=== PATIENT | male | born 1990 | race Caucasian/White ===

== ENCOUNTER 2023-11-16 18:27 | Emergency (ER) | payer OTHER, SELFPAY ==
--- NOTE | 2023-11-16 18:28 | ED.GENADULT ---
HPI - General Adult General Chief complaint: Urogenital-Male Stated complaint: blood in urine Time Seen by Provider: 11/16/23 21:09 Source: patient Mode of arrival: ambulatory History of Present Illness HPI narrative: 33-year-old male with history of renal colic presents with reports of bilateral flank pain that started approximately 1700 this evening and he states that he noted hematuria but otherwise states he has been feeling well. Patient reports some nausea but no vomiting as well as some associated chills but no fevers. Related Data Previous Rx's Medication Instructions Recorded tamsulosin 0.4 mg capsule (Flomax) 0.4 mg PO BEDTIME #5 caps 11/16/23 Allergies Allergy/AdvReac Type Severity Reaction Status Date / Time No Known Allergies Allergy Verified 11/16/23 18:29 Review of Systems Review of Systems: Pertinent positives and negatives as stated in HPI PMFSH Past Medical History Source: nursing notes reviewed Social History Social History Advance Directives: No Advance Directives Information Provided: No Physical Exam ED Vital Signs: Vital Signs - 24 hr 11/16/23 18:30 11/16/23 19:50 11/16/23 19:50 Temperature 98.0 F 98.4 F Pulse Rate 90 83 Respiratory Rate 18 18 Blood Pressure 142/104 H 152/104 H Pulse Oximetry 98 98 98 Oxygen Delivery Method Room Air Room Air Room Air BMI result Body Mass Index 23.7 VITAL SIGNS: Reviewed. GENERAL: Well developed, well nourished, in no acute distress. HEAD: Normocephalic/atraumatic EYES: PERRLA, EOMI EARS: Ext canals without abnormality NOSE: Nares patent bilateral OROPHARYNX: no oral lesions noted, posterior pharynx clear NECK: Supple, no adenopathy LUNGS: Normal breath sounds. No adventitious sounds or accessory muscle use. SpO2<98> CARDIOVASCULAR: Regular rate and rhythm without noted murmurs ABDOMEN: Soft, non-tender, non-distended with bowel sounds. MUSCULOSKELETAL: No tenderness, deformities, or effusions noted on gross inspection. EXTREMITIES: No cyanosis, clubbing or edema. SKIN: Inspection of the skin reveals no rashes NEUROLOGIC: Alert and oriented x 4. Strength and sensation to light touch were grossly intact x 4. Course Course Course Narrative: This is a rapid medical exam: Additional HPI, ROS, PE not included below will be deferred to primary provider. Patient is a 33-year-old male presenting to the emergency department stating that he noted hematuria when he was leaving work tonight. Denies fevers. Also complaining of RUQ abdominal pain which he rates at 3 or 4/10. Complains of bilateral mid back pain, ranging anywhere from 2-5/10. Reports father has hx of kidney stones. Denies concern for STIs. Plan: UA, CT NG urine, labs Medical Decision Making Medical Decision Making [facility] Narrative: 33-year-old male with history and clinical presentation, DDX: Renal colic, hematuria, urinary tract infection I reviewed all investigations and hematologic indices are negative for leukocytosis or left shift, there is a noted thrombocytopenia but otherwise no anemia. Chemistry indices are grossly within normal limits without any noted derangements. Urine is positive for blood but otherwise no evidence of infection, patient's reported pain at this time is 1-2/10. Although chlamydia/gonorrhea is pending I have lower clinical suspicion of this being in etiology. My interpretation is patient may be suffering from renal colic with good pain control at this time, will discharge with instructions to follow-up with urology and increase hydration status. Patient was provided with combination analgesics as well as a prescription for Flomax. Differential Diagnosis Differential Diagnoses: The differential diagnosis associated with the presentation includes Please see the discussion above Admission/Observation Consideration of admission/observation: Escalation of care including admission/observation considered Please see the discussion above Lab Data [facility] Lab Attestation statement: I reviewed the patient's lab results. Please see the discussion above 11/16/23 18:59 11/16/23 18:59 Labs: Lab Results 11/16/23 11/16/23 Range/Units 18:59 19:02 WBC 6.6 (4.8-10.8) X10*3/uL RBC 4.43 L (4.60-5.80) X10*6/uL Hgb 14.0 (14.0-18.0) g/dl Hct 38.7 L (42.0-52.0) % MCV 87.4 (80.0-98.0) fL MCH 31.6 (27.0-33.0) pg MCHC 36.2 H (31.0-36.0) g/dl RDW 12.2 (11.0-16.0) % Plt Count 151 L (160-400) X10*3/uL MPV 9.6 (9.4-12.4) fL Immature Gran % (Auto) 0.3 (0.0-0.4) % Neut % (Auto) 64.5 (45-73) % Lymph % (Auto) 25.4 (20-40) % [place] % (Auto) 8.8 (2-11) % Eos % (Auto) 0.8 (0-4) % Baso % (Auto) 0.2 (0-2) % Lymph # (Auto) 1.7 (1.2-4.9) X10*3/uL [place] # (Auto) 0.6 (0.1-1.2) X10*3/uL Eos # (Auto) 0.1 (0.0-0.4) X10*3/uL Baso # (Auto) 0.0 (0.0-0.2) X10*3/uL Abs Immat Gran (auto) 0.02 (0.00-0.03) X10*3/uL Absolute Neuts (auto) 4.3 (2.0-8.3) x10*3/uL Absolute Nucleated RBC 0.000 (0.0-0.012) X10*3/uL Nucleated RBC % (auto) 0.0 (0.0-0.2) /100WBC Sodium 140 (135-145) mmol/L Potassium 3.9 (3.3-5.1) mmol/L Chloride 102 (96-108) mmol/L Carbon Dioxide 26 (22-29) mmol/L Anion Gap 16 (12-20) BUN 14 (9-16) mg/dL Creatinine 0.77 (0.5-1.4) mg/dL Estim Creat Clear Calc 145.3 Estimated GFR > 60 Random Glucose 91 (60-115) mg/dL Calcium 9.3 (8.4-10.2) mg/dL Total Bilirubin 0.7 (0.0-1.0) mg/dL AST 21 (5-37) U/L ALT 31 (0-40) U/L Alkaline Phosphatase 53 (39-117) U/L Total Protein 6.9 (6.5-8.0) g/dL Albumin 4.4 (3.5-5.0) g/dL Lipase 23 (8-78) U/L Urine Color Yellow Urine Appearance Clear Urine pH 5.5 (5.0-9.0) Ur Specific [place] 1.020 (1.005-1.025) Urine Protein Negative (Neg-Trace) mg/dL Urine Glucose (UA) Negative (Negative) mg/dL Urine Ketones Negative (Negative) mg/dL Urine Blood Moderate (2+) H (Negative) Urine Nitrite Negative (Negative) Ur Leukocyte Esterase Negative (Negative) Urine RBC >20 H (0-2) /HPF Urine WBC 0-5 (0-5) /HPF Ur Squamous Epith Cells 0-2 (0-2) /HPF Urine Bacteria None Seen (None Seen) Hyaline Casts 0-2 (0-2) /LPF Discharge Plan Discharge Clinical Impression: Hematuria, Renal colic Patient Disposition: Home, Self-Care Instructions: Renal Colic (ED), Hematuria (ED) Additional Instructions: 1. Recommend [id number] Tylenol/ibuprofen as needed for pain control, increase the amount of water intake, please call the office of the urologist in the morning to set up an appointment for re-evaluation further outpatient management. 2. You have been provided with a prescription for Flomax. Return to the ER for any worsening symptoms. Prescriptions: New tamsulosin [Flomax] 0.4 mg capsule 0.4 mg PO BEDTIME Qty: 5 0RF Referrals: Thuan Franco MD [Physician] -
[2023-11-16 18:30] VITALS: PULSE 90; RESP 18; TEMP 36.7; O2SAT 98; BMI 23.7
[2023-11-16 19:03] LABS: MANUAL DIFF FLAG NO
[2023-11-16 19:05] LABS: Basophils Percent Auto 0.2 % (0-2); Eosinophils Absolute Auto 0.1 X10*3/uL (0.0-0.4); Eosinophils Percent Auto 0.8 % (0-4); Hematocrit 38.7 % (42.0-52.0); Imm Gran Abs Auto 0.02 X10*3/uL (0.00-0.03); Imm Gran Pct Auto 0.3 % (0.0-0.4); Lymphocytes Absolute Auto 1.7 X10*3/uL (1.2-4.9); Lymphocytes Percent Auto 25.4 % (20-40); Mean Corpuscular HGB Conc 36.2 g/dl (31.0-36.0); Mean Corpuscular Hemoglobin 31.6 pg (27.0-33.0); Mean Corpuscular Volume 87.4 fL (80.0-98.0); Mean Platelet Volume 9.6 fL (9.4-12.4); Monocytes Absolute Auto 0.6 X10*3/uL (0.1-1.2); Monocytes Percent Auto 8.8 % (2-11); Neutrophils Absolute Auto 4.3 x10*3/uL (2.0-8.3); Neutrophils Percent Auto 64.5 % (45-73); Platelet Count 151 X10*3/uL (160-400); Red Blood Count 4.43 X10*6/uL (4.60-5.80); Red Cell Distribution Width 12.2 % (11.0-16.0); White Blood Count 6.6 X10*3/uL (4.8-10.8)
[2023-11-16 19:17] LABS: Appearance Urine Clear; Color Urine Yellow; Glucose Urine UA Negative (Negative); Leukocyte Esterase Urine Negative (Negative); Nitrite Urine Negative (Negative); PH 5.5 (5.0-9.0); UMIC TRIGGER UACC YES; Urine Blood Moderate (2+) (Negative); Urine Ketones Negative (Negative); Urine Protein Negative (Neg-Trace)
[2023-11-16 19:17] LABS: Alanine Aminotransferase 31 U/L (0-40); Albumin Level 4.4 g/dL (3.5-5.0); Alkaline Phosphatase 53 U/L (39-117); Anion Gap 16 (12-20); Aspartate Amino Transferase 21 U/L (5-37); Bilirubin Total 0.7 mg/dL (0.0-1.0); Blood Urea Nitrogen 14 mg/dL (9-16); Calcium 9.3 mg/dL (8.4-10.2); Carbon Dioxide 26 mmol/L (22-29); Chloride 102 mmol/L (96-108); Creatinine Clr Calc Pharmacy 145.3; Estimated Glomerular Filt Rate > 60; Glucose Random 91 mg/dL (60-115); Lipase 23 U/L (8-78); Potassium 3.9 mmol/L (3.3-5.1); Sodium 140 mmol/L (135-145); Total Protein 6.9 g/dL (6.5-8.0)
[2023-11-16 19:22] LABS: Bacteria Urine None Seen (None Seen); Hyaline Casts Urine 0-2 /LPF (0-2); RBC Urine >20 /HPF (0-2); Squamous Epithelial Cell Urine 0-2 /HPF (0-2); WBC Urine 0-5 /HPF (0-5)
[2023-11-16 19:50] VITALS: BP 142/104; BP 152/104; PULSE 83; RESP 18; TEMP 36.9; O2SAT 98
[2023-11-16] MEDS: Acetaminophen 325 MG TABLET 975 MG PO (21:54)
[2023-11-16] MEDS: Ibuprofen 400 MG TABLET PO (21:54)
[2023-11-16 21:57] VITALS: BP 149/105; PULSE 85; RESP 16; O2SAT 98
[2023-11-17 02:48] LABS: CT PCR NOT DETECTED (Not Detect.); NG PCR NOT DETECTED (Not Detect.)
== END 2023-11-16 22:02 | disposition home or self-care (01) ==
PROVIDERS: Registered Nurse Emergency; Emergency Provider Student in an Organized Health Care Education/Training Program
DX: R31.9 Hematuria, unspecified (principal); N23 Unspecified renal colic
CPT/HCPCS: 0353U; 36415; 80053; 81001; 83690; 85025; 99283; 99284

== ENCOUNTER 2023-12-28 14:25 | Outpatient (AMB) | payer OTHER, SELFPAY ==
--- NOTE | 2023-12-28 15:02 | MHC.OFFVIS ---
Intake Intake Visit Reasons: ER Follow up/hematuria Intake Note: NEW Patient presents today to established treatment for: Hematuria Meds- D/C Tamsulosin Allergies to Antibiotic- No Known Allergies Blood Thinner- None Patient stated since he was discharged from the ER,he is been doing well. Community Services Manager Required: No Accompanied by: Self / Same As Patient Allergies No Known Allergies Allergy (Verified 12/28/23 15:37) Medication List - Last Reconciled 12/28/23 by LULY Marquez- No Known Home Meds HPI HPI Comments History of Present Illness Details Dav Perry is a pleasant 33-year-old male patient. He presents to the office today as a new patient for gross hematuria. In discussion with the patient today reports having seeked emergency room care services approximately 6 weeks ago for reports of bilateral flank pain and hematuria. In review of patient's chart it does not appear imaging was ordered. It appears a urine specimen was obtained and noted 1+ microscopic hematuria however patient was discharge as pain had since somewhat decreased significantly/subsided. In discussion with the patient today he does report a longstanding history of smoking. Reports approximately 20 year history of smoking. He reports smoking approximately half a pack of cigarettes per day as he is trying to quit. He otherwise denies urinary urgency, urinary frequency, incontinence, nocturia, hematuria, foul smelling urine, changes to urinary stream, flank pain, fever, and or chills. He is happy with his current voiding parameters. He does report intermittent infrequent episodes of dysuria however relates this to happening when he has a decrease consumption of liquids or fluids for the day. We discussed at length potential causes for gross hematuria. In office urinalysis results reviewed with the patient today. No microscopic hematuria noted. Discussed reasons for blood in the urine may include but are not limited to kidney stones, cancer in the urinary tract, BPH, kidney stone disease or inflammatory conditions of the urinary tract. I have discussed workup to include CT urogram, cytology, and cystoscopy evaluation. [facility] Social History (Updated 12/28/23 @ 15:21 by Maureen Lopez CMA) Alcohol intake: current Patient Tobacco Use Status: Current everyday Tobacco user Tobacco use type: Cigarette Review of Systems Const All systems reviewed & are unremarkable except as noted in HPI and below Physical Exam Const General: cooperative, healthy appearing, comfortable, no acute distress, well developed, alert and awake Orientation/consciousness: patient oriented x3 Limitations: no limitations HEENT Head: Yes normal to inspection, Yes normocephalic and Yes atraumatic Ears: hearing grossly normal bilaterally Eyes General: appearance normal, both eyes and all related structures Neck Neck: Yes normal visual inspection and Yes trachea midline Chest Chest palpation & inspection: normal inspection of the chest Resp Effort & Inspection: normal respiratory effort and able to speak in complete sentences Cardio Rate: regular rate GI Inspection: Yes normal to inspection General: Yes no CVA tenderness Back/Spine/Pelvis Back: no CVA tenderness Skin General skin exam: no rashes or lesions noted Neuro General: patient oriented x3 Extrem General: Yes normal to inspection Psych Appearance: grossly normal and well kempt Mental Status: mental status grossly normal Speech and movement: Normal speech and movement present and Clear speech present Affect: normal affect Attitude: cooperative Thought process: Normal thought process present Thought content: Normal thought content present Insight: Fair insight present (Psych) Judgement: Fair judgement present (Psych) Results AMB Urinalysis, Automated UA Leukoctes 0 Shelly/uL Last Edit by Maureen Lopezguilherme Lopez [facility] on 12/28/23 15:20 UA Nitrite Negative [facility] on 12/28/23 15:20 UA Urobilinogen 0.2 mg/dL Last Edit by Maureen Lopezguilherme Lopez [facility] on 12/28/23 15:20 UA Protein 0 mg/dL [facility] on 12/28/23 15:20 UA pH 6.0 Last Edit by [facility] on 12/28/23 15:20 UA Blood 0 Andrew/uL [facility] on 12/28/23 15:20 UA Specific [place] 1.020 Last Edit [facility] on 12/28/23 15:20 UA Ketone Negative Last Edit by Maureen Lopezguilherme Lopez [facility] on 12/28/23 15:20 UA Bilirubin 0 mg/dL [facility] on 12/28/23 15:20 UA Glucose 0 mg/dL [facility], [facility] on 12/28/23 15:20 Results Reviewed Results Reviewed: Laboratory Last Values Urine pH (Auto) 6.0 04/11/24 15:09 Specific [place] (Auto) 1.020 12/28/23 15:09 Urine Protein (Auto) 0 mg/dL 12/28/23 15:09 Glucose (UA)(Auto) 0 mg/dL 12/28/23 15:09 Urine Ketones (Auto) Negative 12/28/23 15:09 Urine Blood (Auto) 0 Andrew/uL 12/28/23 15:09 Urine Nitrite (Auto) Negative 12/28/23 15:09 Urine Bilirubin (Auto) 0 mg/dL 12/28/23 15:09 Urine Urobilinogen (Auto) 0.2 mg/dL 12/28/23 15:09 Leukocyte Esterase (Auto) 0 Shelly/uL 12/28/23 15:09 Assessment & Plan Assessment & Plan (1) Gross hematuria: Code(s): R31.0 - Gross hematuria (2) Nicotine dependence: Code(s): F17.200 - Nicotine dependence, unspecified, uncomplicated Plan In office urinalysis results reviewed with the patient today; as noted above; will send for urine cytology. Discussed at length potential causes for gross hematuria patient has experience. Discussed further workup with CT urogram, urine cytology, and in office cystoscopy; this was discussed at length; risks and benefits of these interventions were discussed versus surveillance monitoring. Discussed, educated, and stressed the importance of limiting/quitting nicotine dependence for overall health and well-being. Patient denies any bothersome urinary issues or concerns. He reports be happy with current voiding parameters. Will obtain CT urogram for further assessment evaluation. BUN and creatinine ordered for imaging. Follow-up in office cystoscopy with imaging and labs to be completed prior; or sooner with any issues, concerns, and or questions. Orders: Orders CT urogram Today R31.0 - Gross hematuria AMB Urinalysis Automated Today R33.9 - Retention of urine, unspecified Blood Urea Nitrogen Today R31.0 - Gross hematuria Creatinine Today R31.0 - Gross hematuria Patient Instructions: The patient had an opportunity to ask questions regarding the treatment plan. All questions were answered. Physical exam, labs, and imaging were discussed and reviewed in detail. As well as risks, benefits, and discussion of treatment choices. No major barriers to understanding were identified. The patient expressed understanding and agreement with the above treatment plan. The patient was made aware they should contact our office by phone for worsening of their current condition, the appearance of new symptoms, or with any questions or concerns. Compliance is encouraged with any medications and follow up testing that is ordered. It is a privilege to be allowed the opportunity to participate in? your urological care.? Again, if you have any questions or concerns If you have any questions or concerns please do not hesitate to contact me. The office is [phone]. This note is constructed using voice recognition software. While every effort has been made to ensure accuracy signals collection technician errors may have been included. Yours sincerely, SEJAL Marquez Coding Level of Care Code New Pt Level 3 (28665) Diagnoses Gross hematuria R31.0 Nicotine dependence F17.200
== END 2023-12-28 15:38 | disposition home or self-care (01) ==
PROVIDERS: Visit Provider Nurse Practitioner Family
DX: R31.0 Gross hematuria (principal); F17.200 Nicotine dependence, unspecified, uncomplicated
CPT/HCPCS: 99203

== ENCOUNTER → 2023-12-28 14:25 | Outpatient (BNVA) | payer OTHER, SELFPAY | PROVIDERS: Visit Provider Nurse Practitioner Family | DX: R31.0 Gross hematuria (principal); R33.9 Retention of urine, unspecified; F17.200 Nicotine dependence, unspecified, uncomplicated | CPT/HCPCS: 81003 ==

== ENCOUNTER 2024-01-13 07:12 | Outpatient (REF) | payer OTHER, SELFPAY ==
[2024-01-13 12:01] LABS: Blood Urea Nitrogen 7 mg/dL (9-16); Estimated Glomerular Filt Rate > 60
== END 2024-01-13 07:13 | disposition home or self-care (01) ==
LOC: HO.HMGCLDS 07:12
PROVIDERS: Visit Provider Nurse Practitioner Family
DX: R31.0 Gross hematuria (principal)
CPT/HCPCS: 36415; 82565; 84520

== ENCOUNTER 2024-02-07 14:34 | Outpatient (AMB) | payer OTHER, SELFPAY ==
--- NOTE | 2024-02-07 15:04 | A.OFFVIS_ITS ---
Intake Visit Reasons: cysto/CT/labs Intake Note: Patient presents today for a CYSTOSCOPY Procedure: Meds: None Allergies to Antibiotic: No Known Allergies Blood Thinner: None Urinalysis test clear for Cysto? YES Disposable Uro-G HD Cystoscope Cannula: Lot: [id number] Exp: 09/19/2026 Raw Juice Weigher Required: No Accompanied by: Self / Same As Patient Allergies No Known Allergies Allergy (Verified 12/28/23 15:37) [facility] Social History (Updated 12/28/23 @ 15:21 by Maureen Lopez CMA) Alcohol intake: current Patient Tobacco Use Status: Current everyday Tobacco user Tobacco use type: Cigarette Office Procedures Cystoscopy Consent Discussed risk and benefit or proposed procedure with the patient. Information consent for procedure given to the patient. Discussed technical aspects, risks, benefits and alternatives in full. Addressed all of the patient's questions and concerns regarding the procedure. The patient demonstrated knowledge and understanding. They wish to proceed with this procedure. Preparation The patient was prepped in the usual manner. A bingo clerk was present and in the room. Genitalia was prepped with betadine solution in a sterile manner. Lidocaine Jelly 2% was placed into the urethra and 16Fr flexible Olympus cystoscope was inserted into the meatus after adequate lubrication. Results AMB Urinalysis, Automated UA Leukoctes 0 Shelly/uL Last Edit by BHAVYA Nagel on 02/07/24 15:04 UA Nitrite Negative Last Edit by BHAVYA Nagel on 02/07/24 15:04 UA Urobilinogen 0.2 mg/dL Last Edit by HBAVYA Nagel on 02/07/24 15:0 4 UA Protein 0 mg/dL Last Edit by BHAVYA Nagel on 02/07/24 15:04 UA pH 6.0 Last Edit by BHAVYA Nagel on 02/07/24 15:04 UA Blood 0 Andrew/uL Last Edit by BHAVYA Nagel on 02/07/24 15:04 UA Specific [place] 1.015 Last Edit by BHAVYA Nagel on 02/07/24 15: 04 UA Ketone Negative Last Edit by BHAVYA Nagel on 02/07/24 15:04 UA Bilirubin 0 mg/dL Last Edit by BHAVYA Nagel on 02/07/24 15:04 UA Glucose 0 mg/dL Last Edit by BHAVYA Nagel on 02/07/24 15:04 Results Reviewed Results Reviewed: Laboratory Last Values Urine pH (Auto) 6.0 02/07/24 15:01 Specific [place] (Auto) 1.015 02/07/24 15:01 Urine Protein (Auto) 0 mg/dL 02/07/24 15:01 Glucose (UA)(Auto) 0 mg/dL 02/07/24 15:01 Urine Ketones (Auto) Negative 02/07/24 15:01 Urine Blood (Auto) 0 Andrew/uL 02/07/24 15:01 Urine Nitrite (Auto) Negative 02/07/24 15:01 Urine Bilirubin (Auto) 0 mg/dL 02/07/24 15:01 Urine Urobilinogen (Auto) 0.2 mg/dL 02/07/24 15:01 Leukocyte Esterase (Auto) 0 Shelly/uL 02/07/24 15:01 Assessment & Plan Assessment & Plan Orders: Orders AMB Urinalysis Automated Today Z13.9 - Encounter for screening, unspecified AMB Cystoscopy Today R31.0 - Gross hematuria Medications: New lidocaine HCl 2% 10 mL intra-urethral ONCE 10 mL 0RF R31.0 - Gross hematuria nitrofurantoin monohyd/m-cryst 100 mg 100 mg PO ONCE 1 cap 0RF R31.0 - Gross hematuria naproxen 500 mg PO ONCE 1 tab 0RF R31.0 - Gross hematuria Coding
--- NOTE | 2024-02-07 15:10 | A.OFFVIS_ITS ---
Intake Visit Reasons: cysto/CT/labs Allergies No Known Allergies Allergy (Verified 12/28/23 15:37) Medication List - Last Reconciled 02/07/24 by Thuan Franco MD No Known Home Meds HPI Comments Details: Orlando is a pleasant male. He has seen for the following urologic conditions - gross hematuria One prior episode Cystoscopy today Upcoming CT urogram Cystoscopy shows meatal stenosis with soft and yellow stricture anterior urethra. 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 [facility] Social History (Updated 12/28/23 @ 15:21 by Maureen Lopez CMA) Alcohol intake: current Patient Tobacco Use Status: Current everyday Tobacco user Tobacco use type: Cigarette Review of Systems Const Denies chills and Denies fever(s) Card Reports no additional complaints and Denies syncope Resp Denies cough GI Denies abdominal pain and Denies heartburn Reports as per HPI and Denies change in libido Neuro Denies syncope Psych Denies change in libido Endo Denies change in libido Physical Exam Const General: cooperative, healthy appearing, comfortable and no acute distress Orientation/consciousness: patient oriented x3 HEENT Face and sinus: Yes normal facial exam Mouth: moist mucous membranes Neck Neck: Yes normal visual inspection, Yes full ROM and Yes trachea midline Chest Chest palpation & inspection: normal inspection of the chest Resp Effort & Inspection: normal respiratory effort, able to speak in complete sentences and no respiratory distress GI Inspection: Yes normal to inspection Back/Spine/Pelvis Cervical Spine: normal cervical lordosis Thoracic/Lumbar Spine: thoracic and lumbar spine normal to inspection Skin General skin exam: no rashes or lesions noted Neuro General: patient oriented x3, gait normal, tone normal and moves all extremities Extrem General: Yes normal to inspection and Yes capillary refill normal Office Procedures Cystoscopy Consent Discussed risk and benefit or proposed procedure with the patient. Information consent for procedure given to the patient. Discussed technical aspects, risks, benefits and alternatives in full. Addressed all of the patient's questions and concerns regarding the procedure. The patient demonstrated knowledge and understanding. They wish to proceed with this procedure. Preparation The patient was prepped in the usual manner. A intermodal truck driver was present and in the room. Genitalia was prepped with betadine solution in a sterile manner. Lidocaine Jelly 2% was placed into the urethra and 16Fr flexible Olympus c ystoscope was inserted into the meatus after adequate lubrication. Procedure Cystoscopy performed using a disposable Urovue digital 16 Romanian cystoscope. Meatus circumcised - meatal stenosis dilated with meatal dilator Urethra anterior soft annular stricture, posterior urethra normal Prostatic Urethra unremarkable Bladder examination with retroflexion of cystoscope Bladder Orifices normal Bladder Capacity average Trabeculations - Cellule Formation - Diverticulum Formation - Mucosal Erythema - Bladder Tumor - [id number] DISPOSABLE SCOPE URO-G FLEXIBLE SCOPE Procedure code (CPT) selection complete Office Meds lidocaine HCl 2 % mucosal jelly in applicator Performing Provider: Thuan Franco MD Performing Location: [facility] Administered by: Demarco Randhawa LPN on 02/07/24 15:10 Dose Route Admin Location Dispensed Lot Number Expiration Date NDC Meter And Regulator Shop Supervisor 10 mL intra-urethral 10 mL nitrofurantoin monohydrate/macrocrystals 100 mg capsule Performing Provider: Thuan Franco MD Performing Location: [facility] [place] [facility] Administered by: Demarco Randhawa LPN on 02/07/24 15:10 Dose Route Admin Location Dispensed Lot Number Expiration Date NDC Meter And Regulator Shop Supervisor 100 mg PO 1 cap naproxen 500 mg tablet Performing Provider: Thuan Franco MD Performing Location: [facility] [place] [facility] Administered by: Demarco Randhawa LPN on 02/07/24 15:10 Dose Route Admin Location Dispensed Lot Number Expiration Date NDC Meter And Regulator [employer] Supervisor 500 mg PO 1 tab Results AMB Urinalysis, Automated UA Leukoctes 0 Shelly/uL Last Edit by BHAVYA Nagel on 02/07/24 15:04 UA Nitrite Negative Last Edit by BHAVYA Nagel on 02/07/24 15:04 UA Urobilinogen 0.2 mg/dL Last Edit by BHAVYA Nagel on 02/07/24 15:0 4 UA Protein 0 mg/dL Last Edit by BHAVYA Nagel on 02/07/24 15:04 UA pH 6.0 Last Edit by BHAVYA Nagel on 02/07/24 15:04 UA Blood 0 Andrew/uL Last Edit by BHAVYA Nagel on 02/07/24 15:04 UA Specific [place] 1.015 Last Edit by BHAVYA Nagel on 02/07/24 15: 04 UA Ketone Negative Last Edit by BHAVYA Nagel on 02/07/24 15:04 UA Bilirubin 0 mg/dL Last Edit by BHAVYA Nagel on 02/07/24 15:04 UA Glucose 0 mg/dL Last Edit by BHAVYA Nagel on 02/07/24 15:04 Results Reviewed Results Reviewed: Laboratory Last Values Urine pH (Auto) 6.0 02/07/24 15:01 Specific [place] (Auto) 1.015 02/07/24 15:01 Urine Protein (Auto) 0 mg/dL 02/07/24 15:01 Glucose (UA)(Auto) 0 mg/dL 02/07/24 15:01 Urine Ketones (Auto) Negative 02/07/24 15:01 Urine Blood (Auto) 0 Andrew/uL 02/07/24 15:01 Urine Nitrite (Auto) Negative 02/07/24 15:01 Urine Bilirubin (Auto) 0 mg/dL 02/07/24 15:01 Urine Urobilinogen (Auto) 0.2 mg/dL 02/07/24 15:01 Leukocyte Esterase (Auto) 0 Shelly/uL 02/07/24 15:01 Assessment & Plan Assessment & Plan (1) Urethral meatal stenosis: Code(s): N35.919 - Unspecified urethral stricture, male, unspecified site Category: Medical Plan Four week follow-up tele Orders: Orders AMB Urinalysis Automated 02/07/24 Z13.9 - Encounter for screening, unspecified AMB Cystoscopy 02/07/24 R31.0 - Gross hematuria Medications: New clotrimazole-betamethasone 1-0.05 % Apply thin coat 2 times per day 1 appl topical BID 4 weeks 45 grams 0RF N35.919 - Unspecified urethral stricture, male, unspecified site, N48.1 - Balanitis Patient Instructions: Imaging studies, laboratory and physical exam results were discussed and reviewed in detail. No major barriers to patient understanding were identified. An opportunity to ask questions regarding the treatment plan was provided. All questions were answered. The patient expressed understanding and agreement with the above treatment plan. The patient is aware they should contact our office by phone for worsening of their current condition or the appearance of new urologic symptoms. Compliance is encouraged with any medications and followup testing that is ordered. It is a privilege to participate in the urologic care of your patient. If you have any questions or concerns regarding treatment for the above conditions, or other urologic issues, please do not hesitate to contact me. The office telephone contact is [phone]. This note is constructed using voice recognition software. While every effort has been made to ensure accuracy certified appliance service technician errors may have been included. Yours sincerely, Dr Thuan Franco MD, [place] [facility] - Urology Providers of Expert, Compassionate Care for the Genitourinary System Coding Level of Care Code Est Pt Level 4 (78196) Diagnoses Urethral meatal stenosis N35.919 CPT Codes Cystoscopy - CPT: 35135-[id number] ([id number])
--- OUTSIDE RECORDS SUMMARY | 2024-02-07 18:17 | XMS_ITS | Continuity of Care Document ---
Author Organization [facility] Adult Address [address] [place] [address]- Care Team Providers Care Computer Numerical Control Programmer Name Role Phone Mayur Stratton MD Primary Care Physician Encounter [facility] Date(s): 09/26/19 - 01/24/20 [facility] [address] [place] [address]- [facility] Attending Physician: Mayur Stratton MD Allergies, Adverse Reactions, Alerts Substance Reaction Severity Status NKA Active Immunizations Given and Recorded Vaccine Date Status Refusal Reason influenza virus vaccine, inactivated 1 06/20/19 Gi jose francisco tetanus/diphtheria/pertussis, acel(Tdap) 04/24/19 Given 1Result Comment: [id number] Social History Social History Type Response Tobacco Other: 1/2 ppd. Sex
--- OUTSIDE RECORDS SUMMARY | 2024-02-07 18:17 | XMS_ITS | Continuity of Care Document ---
Author Organization [facility] Adult Address [address] [place] [address]- Care Team Providers Care Plaster Model And Mold Maker Name Role Phone Mayur Stratton MD Primary Care Physician Encounter [facility] Date(s): 08/16/19 - 11/22/19 [facility] [address] [place] [address]- [facility] Attending Physician: Mayur Stratton MD Allergies, Adverse Reactions, Alerts Substance Reaction Severity Status NKA Active Immunizations Given and Recorded Vaccine Date Status Refusal Reason influenza virus vaccine, inactivated 1 06/20/19 Gi jose francisco tetanus/diphtheria/pertussis, acel(Tdap) 04/24/19 Given 1Result Comment: [id number] Social History Social History Type Response Tobacco Other: 1/2 ppd. Sex
--- OUTSIDE RECORDS SUMMARY | 2024-02-07 18:17 | XMS_ITS | Continuity of Care Document ---
Author Organization [facility] Adult Address [address] [place] [address]- Care Team Providers Care Bracelet And Brooch Maker Name Role Phone Chayito MONTOYA, Mayur Primary Care Physician Encounter [facility] Date(s): 12/25/19 - 01/04/20 [facility] [address] [place] [address]- [facility] Attending Physician: Robel Figueroa Admitting Physician: AdmRobel starkey Referring Physician: Admtr, Ar8 Allergies, Adverse Reactions, Alerts Substance Reaction Severity Status NKA Active Immunizations Given and Recorded Vaccine Date Status Refusal Reason influenza virus vaccine, inactivated 1 06/20/19 Gi jose francisco tetanus/diphtheria/pertussis, acel(Tdap) 04/24/19 Given 1Result Comment: [id number] Social History Social History Type Response Tobacco Other: 1/2 ppd. Sex
== END 2024-02-07 15:41 | disposition home or self-care (01) ==
LOC: HO.HUSH 14:34
PROVIDERS: Visit Provider Urology
DX: R31.0 Gross hematuria (principal); Z13.9 Encounter for screening, unspecified
CPT/HCPCS: 52000

== ENCOUNTER → 2024-02-07 14:34 | Outpatient (BNVA) | payer OTHER, SELFPAY | PROVIDERS: Visit Provider Urology | DX: R31.0 Gross hematuria (principal); N35.919 Unspecified urethral stricture, male, unspecified site | CPT/HCPCS: 52000; 81003 ==

== ENCOUNTER 2024-02-21 10:35 | Outpatient (REF) | payer OTHER, SELFPAY ==
--- NOTE | ~2024-02-21 | CT_ITS ---
EXAMINATION: CT ABDOMEN AND PELVIS WITHOUT AND WITH CONTRAST CLINICAL INFORMATION: 33-year-old male with gross hemorrhage COMPARISON: None available. TECHNIQUE: Noncontrast CT of the abdomen and pelvis is performed followed by split bolus contrast-enhanced images using 85 mL Omnipaque 350 contrast.? Postcontrast imaging is performed during the combined nephrogram and excretion phase. Sagittal and coronal reformatted images were obtained on the technologist's workstation for both the precontrast and postcontrast phases. This CT examination was performed using dose optimization techniques as appropriate, variously including the following: *Automated exposure control *Adjustment of mA and/or kV according to patient size (this includes techniques or standardized protocols for targeted exams where dose is matched to indication/reason for exam; i.e. extremities or head) *Use of iterative reconstruction technique DLP: 526 mGy-cm FINDINGS: LUNG BASES: The visualized lung bases are unremarkable. LIVER, GALLBLADDER, AND BILIARY TREE: The liver is normal in size, shape, and attenuation. No focal hepatic lesion or biliary ductal dilatation is present. The gallbladder is unremarkable with no evidence of radiopaque gallstones, gallbladder wall thickening, or obvious pericholecystic inflammatory changes. PANCREAS: Unremarkable. SPLEEN: Unremarkable. ADRENAL GLANDS: Unremarkable. KIDNEYS AND URETERS: The kidneys are normal in size, shape, and attenuation. No hydronephrosis, hydroureter, or calculi seen. No perinephric stranding. BLADDER: Unremarkable. GASTROINTESTINAL TRACT: The small and large bowel are unremarkable. The appendix is not seen ABDOMINAL WALL: No significant hernia is appreciated. LYMPH NODES: Normal. VASCULAR: Unremarkable. PELVIC VISCERA: Unremarkable. OSSEUS STRUCTURES: Unremarkable. CT/CT urogram IMPRESSION: No significant abnormality.
[2024-02-21] MEDS: iohexoL 350 MG/ML 100 ML INFUS..BTL IV (11:42)
== END 2024-02-21 10:36 | disposition home or self-care (01) ==
LOC: HO.CT 10:35
PROVIDERS: Visit Provider Nurse Practitioner Family
DX: R31.0 Gross hematuria (principal)
CPT/HCPCS: 74178; Q9967

== ENCOUNTER 2024-03-08 13:41 | Outpatient (AMB) | payer OTHER, SELFPAY ==
--- NOTE | 2024-03-08 13:42 | A.OFFVIS_ITS ---
Intake Visit Reasons: 4 week f/u Intake Note: Pt presents to the office today as a telehealth for a 4 week follow up Urology Meds: None Blood thinners: None Allergies No Known Allergies Allergy (Verified 03/08/24 13:42) HPI Comments Details: Orlando is a pleasant male. 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 [facility] Social History (Updated 12/28/23 @ 15:21 by Maureen Lopez CMA) Alcohol intake: current Patient Tobacco Use Status: Current everyday Tobacco user Tobacco use type: Cigarette Review of Systems Const All systems reviewed & are unremarkable except as noted in HPI and below Denies chills and Denies fever(s) Card Reports no additional complaints and Denies syncope Resp Denies cough GI Denies abdominal pain and Denies heartburn Reports as per HPI and Denies change in libido Musc Reports no additional complaints Neuro Denies syncope Psych Denies change in libido Endo Denies change in libido Physical Exam Telemedicine evaluation Appropriate responses Regular breathing rate and rhythm Const General: cooperative, healthy appearing, comfortable and no acute distress Orientation/consciousness: patient oriented x3 HEENT Head: Yes normal to inspection Ears: hearing grossly normal bilaterally Face and sinus: Yes normal facial exam Mouth: moist mucous membranes Eyes General: appearance normal, both eyes and all related structures Neck Neck: Yes normal visual inspection, Yes full ROM and Yes trachea midline Chest Chest palpation & inspection: normal inspection of the chest Resp Effort & Inspection: normal respiratory effort, able to speak in complete sentences and no respiratory distress GI Inspection: Yes normal to inspection Back/Spine/Pelvis Cervical Spine: normal cervical lordosis Thoracic/Lumbar Spine: thoracic and lumbar spine normal to inspection Skin General skin exam: no rashes or lesions noted Neuro General: patient oriented x3, gait normal, tone normal and moves all extremities Extrem General: Yes normal to inspection and Yes capillary refill normal Telehealth Telehealth Telehealth Platform: Identification International Location of provider rendering services: practice address Location of patient: address on file Patient Identification confirmed using: Name, : Yes Telehealth method: video Patient verbally consented to treatment: Yes Patient verbally consented to billing insurance company: Yes Patient informed of any privacy concerns related to visit: Yes Minutes spent on Phone/Video with Pt.: 15 Assessment & Plan Assessment & Plan (1) Urethral meatal stenosis: Code(s): N35.919 - Unspecified urethral stricture, male, unspecified site Category: Medical Plan Twelve month follow-up Patient Instructions: Imaging studies, laboratory and physical exam results were discussed and reviewed in detail. No major barriers to patient understanding were identified. An opportunity to ask questions regarding the treatment plan was provided. All questions were answered. The patient expressed understanding and agreement with the above treatment plan. The patient is aware they should contact our office by phone for worsening of their current condition or the appearance of new urologic symptoms. Compliance is encouraged with any medications and followup testing that is ordered. It is a privilege to participate in the urologic care of your patient. If you have any questions or concerns regarding treatment for the above conditions, or other urologic issues, please do not hesitate to contact me. The office telephone contact is [phone]. This note is constructed using voice recognition software. While every effort has been made to ensure accuracy project management professor errors may have been included. Yours sincerely, Dr Thuan Franco MD, [place] [facility] - Urology Providers of Expert, Compassionate Care for the Genitourinary System Coding Level of Care Code Tele Est Pt Level 3 (80870) Diagnoses Urethral meatal stenosis N35.919
== END 2024-03-08 14:07 | disposition home or self-care (01) ==
LOC: HO.HUSH 13:41
PROVIDERS: Visit Provider Urology
DX: N35.919 Unspecified urethral stricture, male, unspecified site (principal)
CPT/HCPCS: 99213

== ENCOUNTER → 2024-03-08 13:41 | Outpatient (BNVA) | payer OTHER, SELFPAY | PROVIDERS: Visit Provider Urology ==

== ENCOUNTER 2024-12-07 13:49 | Emergency (ER) | payer SELFPAY ==
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
--- NOTE | ~2024-12-07 | XR_ITS ---
CLINICAL HISTORY: rt hand pain Radiographs of the right hand, 3 views Comparison: None Findings: No fracture or dislocation. The distal tuft of 3rd distal phalanx is out of the field of view in the lateral view, however is normal on the other images. The joint spaces are preserved without osteophytosis. Bone mineralization is normal. Soft tissue swelling. Impression: No fracture. This document has been electronically signed by: Judie Arredondo MD on 12/07/2024 14:28:18
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
[2024-12-07 13:52] VITALS: BP 126/81; PULSE 97; O2SAT 96
[2024-12-07 13:53] VITALS: BP 145/96; PULSE 95; RESP 16; TEMP 37; O2SAT 97
[2024-12-07 14:04] VITALS: BP 145/96; PULSE 95; RESP 16; TEMP 37; O2SAT 97; BMI 25.5
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
[2024-12-07 14:52] LABS: MANUAL DIFF FLAG NO
[2024-12-07 14:53] LABS: Basophils Percent Auto 0.3 % (0-2); Eosinophils Absolute Auto 0.2 X10*3/uL (0.0-0.4); Eosinophils Percent Auto 3.4 % (0-4); Hematocrit 39.8 % (42.0-52.0); Hemoglobin 14.4 g/dl (14.0-18.0); Imm Gran Abs Auto 0.03 X10*3/uL (0.00-0.03); Imm Gran Pct Auto 0.5 % (0.0-0.4); Lymphocytes Absolute Auto 1.9 X10*3/uL (1.2-4.9); Lymphocytes Percent Auto 29.7 % (20-40); Mean Corpuscular HGB Conc 36.2 g/dl (31.0-36.0); Mean Corpuscular Volume 85.6 fL (80.0-98.0); Monocytes Absolute Auto 0.4 X10*3/uL (0.1-1.2); Monocytes Percent Auto 6.5 % (2-11); Neutrophils Absolute Auto 3.9 x10*3/uL (2.0-8.3); Neutrophils Percent Auto 59.6 % (45-73); Platelet Count 167 X10*3/uL (160-400); Red Blood Count 4.65 X10*6/uL (4.60-5.80); Red Cell Distribution Width 12.7 % (11.0-16.0); White Blood Count 6.5 X10*3/uL (4.8-10.8)
[2024-12-07 15:00] LABS: Prothrombin Time 11.2 SEC (10.9-12.4)
[2024-12-07 15:09] LABS: Alanine Aminotransferase 22 U/L (0-40); Albumin Level 4.2 g/dL (3.5-5.0); Alkaline Phosphatase 64 U/L (39-117); Anion Gap 15 (12-20); Aspartate Amino Transferase 27 U/L (5-37); Bilirubin Total 1.1 mg/dL (0.0-1.0); Blood Urea Nitrogen 4 mg/dL (9-16); Calcium 8.5 mg/dL (8.4-10.2); Carbon Dioxide 23 mmol/L (22-29); Chloride 102 mmol/L (96-108); Estimated Glomerular Filt Rate > 60; Glucose Random 93 mg/dL (60-115); Potassium 3.9 mmol/L (3.3-5.1); Sodium 136 mmol/L (135-145); Total Protein 7.1 g/dL (6.5-8.0)
[2024-12-07] MEDS: Piperacillin Sodium/Tazobactam 3.375 GM in 0.9 % Sodium Chloride 50 ML IV (15:26)
[2024-12-07] MEDS: iohexoL 350 MG/ML 100 ML INFUS..BTL 85 ML IV (15:28)
[2024-12-07 15:56] LABS: Ethanol 244 mg/dL
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
[2024-12-07 16:43] LABS: Amphetamine Screen Urine Not Detected (Not Detect); Barbiturates, Urine Not Detected (Not Detect); Benzodiazepines Screen Urine Not Detected (Not Detect); Buprenorphine Scr Not Detected (Not Detect); Cannabinoid Screen Urine POSITIVE (Not Detect); Cocaine Screen Urine Not Detected (Not Detect); Fentanyl, urine Not Detected (Not Detect); Methadone Screen, Urine Not Detected (Not Detect); Opiate Screen Urine Not Detected (Not Detect); Oxycodone Screen Urine Not Detected (Not Detect); Phencyclidine Screen Urine Not Detected (Not Detect)
[2024-12-07 17:15] VITALS: BP 128/96; PULSE 95; RESP 13; O2SAT 98
[2024-12-07 17:28] VITALS: BP 138/96; PULSE 95; RESP 18; TEMP 36.8; O2SAT 98
== END 2024-12-07 17:29 | disposition short-term general hospital (02) ==
PROVIDERS: Physician Assistant; Emergency Provider Emergency Medicine
DX: S09.93XA Unspecified injury of face, initial encounter (principal); S01.21XA Laceration without foreign body of nose, initial encounter; S60.512A Abrasion of left hand, initial encounter; S60.511A Abrasion of right hand, initial encounter; V23.49XA Other motorcycle driver injured in collision with car, pick-up truck or van in traffic accident, initial encounter; R29.700 NIHSS score 0; Y93.89 Activity, other specified; Y92.414 Local residential or business street as the place of occurrence of the external cause; Y99.9 Unspecified external cause status; Z79.899 Other long term (current) drug therapy
CPT/HCPCS: 36415; 70450; 70486; 71260; 72125; 73130; 74177; 80053; 80307; 83735; 85025; 85610; 96365; 96366; 99285; J2543; Q9967

== ENCOUNTER → 2024-12-07 14:03 | Outpatient (BNV) | payer OTHER, SELFPAY | PROVIDERS: Emergency Provider Emergency Medicine; Visit Provider Radiology Diagnostic Radiology | DX: R10.9 Unspecified abdominal pain (principal); R07.9 Chest pain, unspecified; M54.2 Cervicalgia; S02.40DA Maxillary fracture, left side, initial encounter for closed fracture; S02.2XXA Fracture of nasal bones, initial encounter for closed fracture; M79.641 Pain in right hand; M79.642 Pain in left hand; S00.81XA Abrasion of other part of head, initial encounter; V29.498A Other motorcycle driver injured in collision with other motor vehicles in traffic accident, initial encounter | CPT/HCPCS: 70450; 70486; 71260; 72125; 73130; 74177 ==